=== PATIENT | female | born 1965 | race Caucasian/White ===

== ENCOUNTER → 2016-11-25 | Outpatient (CLI) | payer BC ==
[~2016-11-25] MED LIST: ATIVAN0.5 MG PO; ATIVAN1 MG PO; B-1100 MG PO; CARAFATE1 GM/10 ML PO; CELEXA40 MG PO; CIPRO500 MG PO; CITALOPRAM40 MG PO; CLONIDINE0.2 MG PO; FLAGYL500 MG PO; Flagyl500 M1 PO; HYDROCHLOROTHIA50 MG; IMODIUM A-D2 MG PO; KCL PO; KLONOPIN0.5 MG PO; KLOR-CON 1010 MEQ PO; KROGER NIC21 MG/24 H T; LIBRIUM25 MG PO; LISINOPRIL/HCTZ1 TA1 PO; LISINOPRIL20 MG PO; LOMOTIL 0.025 M1 TA1 PO; MULTIVITAMIN1 CTB PO; NATURE'S BLEND F1 MG PO; NORVASC10 MG; ONDANSETRON HYDR4 M1 PO; PEPCID20 MG PO; PHENERGAN25 M1 PO; PRILOSEC40 MG PO; PROTONIX40 MG PO; THERA TABS1 TAB PO; THERA1 TAB PO; TRICOR145 MG PO; VICODIN 5/500 505 MG PO; VISTARIL25 M1 PO; VISTARIL25 MG PO; VITAMIN B-11 TAB PO; XANAX0.5 MG PO; ZOFRAN ODT4 MG SL; Zofran4 MG PO
--- NOTE | ~2016-11-25 | ST ---
[place], [place] EXERCISE STRESS TEST REPORT NAME: [id number] UN[facility] #: [id number] ROOM: DOCTOR: AGAPITO SAWYER MD BIRTHDATE: [birth year] DOS: 11/25/2016 EKG portion of the test: The patient was unable to ambulate for Lexiscan Cardiolite as she is having continuous chest discomfort. Baseline cardiogram is sinus rhythm with poor R-wave progression in the anterior leads, 0.4 mg Lexiscan, duration of 10 seconds. No new EKG changes. No chest pain. Blood pressure and heart rate response was normal. Nuclear images will be reported separately. AGAPITO SAWYER MD CM:STRESS:EXERCISE STRESS TEST REPORT [id number] JESSIKA BARBERSE AGAPITO SAWYER MD
== END | disposition home or self-care (01) ==
LOC: CARD 03:32
DX: R07.2 Precordial pain (principal); R53.81 Other malaise

== ENCOUNTER 2017-02-02 10:58 | Inpatient (IN) | payer BC ==
[~2017-02-02] VITALS: Ht 154.9 cm; Wt 57.6 kg
--- NOTE | ~2017-02-02 | O ---
[place], [place] OPERATIVE NOTE NAME: ANNETTE SEPULVEDA UNIT #: [id number] ROOM: 510 DOCTOR: YOLETTE SAHU,MINGO BIRTHDATE: [birth year] DOS: INDICATIONS: The patient has presented with GI bleed, undergoing investigation. Consultation has been written. CT scan has been consistent with colitis. The patient has been taking Advil and epigastric distress. PROCEDURE: Today's procedure part of investigation is colonoscopy and panendoscopy. PREMEDICATION: Versed and Diprivan. SCOPE: Olympus forward-viewing gastroscope Q10 video. REPORT: After putting the patient in the left lateral position and after application of lubricant to the scope, the scope was introduced. Thereafter, under direct visualization, I advanced through the length of esophagus without difficulty. Moderate size hiatal hernia was noticed. Gastric pouch was entered. Gastritis was seen. Duodenal bulb, second and third part within normal limits. Antral biopsy obtained. The patient extubated, tolerated procedure well. IMPRESSION: Moderate sized hiatal hernia, gastritis of mild degree, status post biopsy. PLAN AND DISCUSSION: We are going to proceed with colonoscopy MINGO DE LA VEGA MD CM:OPRECORD:OPERATIVE NOTE [id number] MINGO DE LA VEGA MD 02/04/171930 interface
--- NOTE | ~2017-02-02 | CON ---
[place], [place] REPORT OF CONSULTATION NAME[facility]: [id number] UNIT #: [id number] ROOM: 510 DOCTOR: YOLETTE SAHUMINGO BIRTHDATE: [birth year] DOS: 02/04/2017 HISTORY OF PRESENT ILLNESS: A 51-year-old patient who presented with chief complaint of GI bleed. The patient has been taking some nonsteroidal anti-inflammatory for left lower quadrant pain. The patient has been experiencing melenic stool, is concerned about it. Comprehensive metabolic panel, electrolytes were reassessed. She was found initially to have hypokalemia of 2.8. Liver function test normal. C-reactive protein 2.19. INR was 1.1, PT 11.9. CBC, differential was reassessed. White blood cell was 12. Mild chronic changes of emphysema on chest x-ray. Lactic acid was 2.0. CT scan of the abdomen and pelvis was done, wall thickening of the colon on the right side was seen, fatty infiltration of liver, moderate amount of vascular calcification. Abdominal sonogram was done, unremarkable ultrasound of the abdomen. H and H 11 and 33, followup noticed. C. diff was negative. Blood cultures negative. Stool cultures negative. PAST MEDICAL HISTORY: Depression, GERD, gastritis, hiatal hernia, hypertension, anxiety. SOCIAL HISTORY: Alcohol dependency and also nicotine dependency. PAST SURGICAL HISTORY: Tonsillectomy, tubal ligation. FAMILY HISTORY: Noncontributory. ALLERGIES: SULFA. MEDICATIONS: List has been reviewed. REVIEW OF SYSTEMS: HEENT: Denies double vision, blurred vision. RESPIRATORY: Denies shortness of breath. CARDIOVASCULAR: Denies chest pain. DIGESTIVE SYSTEM: Black tarry stool. PHYSICAL EXAMINATION: VITAL SIGNS: Stable. HEENT: Head normocephalic, nontraumatic. Mouth and buccal mucosa benign. NECK: Supple. No thyromegaly. CHEST: Symmetric anatomy, equal expansion. No wheeze, no rhonchi. HEART: Normal sinus rhythm, no gallop, no murmur. ABDOMEN: Soft. No hepato-organomegaly. Bowel sounds present. No pulsatile mass. EXTREMITIES: No cyanosis, no pedal edema. NEUROLOGIC: Alert, oriented to time, place and person. IMPRESSION: Gastrointestinal bleed, ruling out upper versus colonic diverticulum and colitis all in the differential diagnosis. The patient with history of alcohol, nicotine, and nonsteroidal anti-inflammatory history. [place], [place] REPORT OF CONSULTATION NAME: ANNETTE SEPULVEDA [place] UNIT #: [id number] ROOM: [facility] DOCTOR: MINGO DE LA VEGA MD BIRTHDATE: [birth year] MINGO DE LA VEGA MD CM:CONSTR:REPORT OF CONSULTATION 1739 02/05/17 0223 interface
--- NOTE | ~2017-02-02 | CON ---
[place], [place] REPORT OF CONSULTATION [id number] UN[facility] #: [id number] ROOM: 510 DOCTOR: MINGO DE LA VEGA MD BIRTHDATE: [birth year] DOS: HISTORY OF PRESENT ILLNESS: A 51-year-old patient who presented with chief complaint of abdominal pain, cramps, diarrhea, underwent colonoscopic evaluation, was found to have colitis. Biopsies were reviewed, moderate acute and chronic colitis with foci of cryptitis was identified. Urine cultures were negative. CBC differential white blood cell was 6, H and H of 11 and 32, differential within normal limit. Basic metabolic panel: Potassium was 3.3. Basic metabolic panel reassessed, potassium has been corrected, sodium was 146, chloride 110. This could be secondary to saline product that she is receiving. PAST MEDICAL HISTORY: Gastritis, GERD, depression, hypertension, alcohol dependence, anxiety. PAST SURGICAL HISTORY: Tubal ligation, tonsillectomy. REVIEW OF SYSTEMS: No hematemesis, no hematochezia, no shortness of breath, no chest pain and GI system, continues with diarrhea, but milder. PHYSICAL EXAMINATION: HEENT: Benign. NECK: Supple, no thyromegaly. CHEST: Symmetric anatomy, equal expansion. HEART: Normal sinus rhythm, no gallop, no murmur. ABDOMEN: Soft. No hepato-organomegaly. Bowel sounds present. EXTREMITIES: No cyanosis. No pedal edema. NEUROLOGIC: Alert, oriented to time, place, person. IMPRESSION AND PLAN: Colitis. Allergies to SULFA. Therefore, it makes it very difficult to have mesalamine of choice except balsalazide, which is sulfate sparing and at least 1 month supply and we have talked to Dr. Hernandez regarding also doing a dose of prednisone 20 mg per day 1 week, then next week 10 mg and then next 3 tablets of 5 mg each every other day and we have extreme discussions with her regarding abstaining from alcohol, which is going to be very beneficial in her management and follow up as outpatient in [facility] Clinic. MINGO DE LA VEGA MD CM:CONSTR:REPORT OF CONSULTATION 1027 02/08/17 2317 interface
--- NOTE | ~2017-02-02 | O ---
[place], [place] OPERATIVE NOTE NAME: ANNETTE SEPULVEDA UNIT #: [id number] ROOM: 510 DOCTOR: YOLETTE SAHU,MINGO BIRTHDATE: [birth year] DOS: INDICATIONS: The patient has presented with chief complaint of large volume rectal bleed. PROCEDURE: Today's procedure part of investigation is colonoscopy. PREMEDICATION: Versed and Diprivan. SCOPE: Olympus forward-viewing gastroscope Q10 video. REPORT: After putting the patient in the left lateral position and after application of lubricant to rectal pouch and digital examination, scope was introduced. Thereafter, under direct visualization, I advanced through the length of colon without difficulty. Pancolitis with numerous ulcerated throughout the entire length of colon was identified. Photographed, biopsied. The patient was extubated, tolerated procedure well. IMPRESSION: Pancolitis, ruling out ulcerative colitis, ruling out previous insult of infectious colitis; however, studies are negative. PLAN AND DISCUSSION: We are going to start this patient on clear liquid, starting on metronidazole 500 mg IV q. 8 hours while she is an inpatient as well as balsalazide 750 mg 2 tablets 3 times a day. Follow up in office in 2 weeks and clinical reassessment. I thank you very much indeed for your kind referral. Sincerely, MINGO DE LA VEGA MD CM:OPRECORD:OPERATIVE NOTE [id number] MINGO DE LA VEGA MD 02/04/171936 interface
[2017-02-02 11:12] VITALS: BP 122/77
[2017-02-02] MEDS ORDERED: HYDROCODONE BIT1 T11 PO (11:14)
[2017-02-02] MEDS ORDERED: FLAGYL500 MG PO (11:14)
[2017-02-02] MEDS ORDERED: Ciprofloxacin500 MG PO (11:14)
[2017-02-02] MEDS ORDERED: DOK100 M1 PO (11:15)
[2017-02-02 12:00] VITALS: BP 129/72
[2017-02-02 12:11] LABS: HEMATOCRIT 37.4 % (37.0-47.0); HEMOGLOBIN 12.8 g/dl (12.0-16.0); MEAN CELL VOLUME 84.6 fl (81.0-99.0); MEAN CORPUSCULAR HGB CONC 34.2 g/dl (33.0-37.0); MEAN PLATELET VOLUME 8.9 fl (9.6-12.3); PLATELET COUNT AUTOMATED 700 10*3/uL (130-400); RED BLOOD COUNT 4.42 10*6/uL (4.10-5.10); RED CELL DISTRI WIDTH 14.5 % (0-14.5)
[2017-02-02 12:27] LABS: ALBUMIN 3.1 gm/dl (3.1-4.5); BUN 18 mg/dl (7-24); C-REACTIVE PROTEIN 2.19 MG/DL (0-0.3); CARBON DIOXIDE 25 mmol/L (21-32); CHLORIDE 103 mmol/L (98-107); EST GLOM FILT AFRICAN AMERICAN > 60 ml/min; GLUCOSE 103 mg/dL (65-99); INTERNATIONAL NORM RATIO 1.1 (2.0-3.5); MAGNESIUM 1.7 mg/dL (1.5-2.1); POTASSIUM 2.8 mmol/L (3.5-5.1); PROTHROMBIN TIME 11.9 SECONDS (9.0-12.4); SGOT/AST 19 IU/L (3-35); SGPT/ALT 16 U/L (12-78); SODIUM 141 mmol/L (136-145)
[2017-02-02 12:29] LABS: ALKALINE PHOSPHATASE 58 U/L (45-117); BILIRUBIN, TOTAL 0.3 mg/dl (0.2-1.0); CPK 38 U/L (26-192); TROPONIN I 0.017 ng/ml (<0.045)
[2017-02-02 12:37] LABS: ATYPICAL LYMPHS 1 % (0-0); EOSINOPHIL # 0.1 10*3/uL (0-0.4); EOSINOPHILS 1 % (1-4); LYMPHOCYTE # 2.5 10*3/uL (1.3-4.4); MONOCYTE # 0.5 10*3/uL (0.1-1.0); NEUTROPHIL # 8.9 10*3/uL (2.3-7.9); NEUTROPHILS 74 % (47-73); TOTAL CELLS COUNTED 100 #CELLS
[2017-02-02 12:38] LABS: PLATELET SUFFICIENCY HIGH (NORMAL)
[2017-02-02 14:10] LABS: BILIRUBIN NEGATIVE (NEGATIVE); BLOOD NEGATIVE (NEGATIVE); CLARITY SL CLOUDY (CLEAR); COLOR YELLOW (YELLOW); GLUCOSE NEGATIVE (NEGATIVE); KETONE NEGATIVE (NEGATIVE); LEUKO ESTERASE NEGATIVE (NEGATIVE); NITRITE NEGATIVE (NEGATIVE); PH 6.5 (5.0-9.0); PROTEIN 1+ (NEGATIVE); SPECIFIC GRAVITY <= 1.005 (1.005-1.030); UROBILINOGEN 0.2 E.U./dl (0.2-1.0)
[2017-02-02 14:28] LABS: EPITHELIAL CELLS 16-20; RBC 0-2 rbc/hpf (0-2); URINE REFLEX COMMENT YES (NO)
[2017-02-02 14:43] VITALS: BP 120/8; BP 120/80
[2017-02-02 15:51] VITALS: BP 132/90
[2017-02-02 16:00] VITALS: BP 144/76
[2017-02-02 20:00] VITALS: BP 130/67
[2017-02-03] VITALS: BP 129/72
[2017-02-03 06:43] LABS: BASO # 0.1 10*3/uL (0.0-0.1); BASO % 0.6 % (0.0-1.0); EOS # 0.3 10*3/uL (0.0-0.4); EOS % 2.8 % (1.0-4.0); HEMATOCRIT 33.2 % (37.0-47.0); IG # 0.1 10*3/uL (0.0-0.1); LYMPH # 2.1 10*3/uL (1.3-4.4); LYMPH % 20.8 % (27.0-41.0); MEAN CORPUSCULAR HGB 29.3 pg (27.0-31.0); MEAN CORPUSCULAR HGB CONC 33.1 g/dl (33.0-37.0); MEAN PLATELET VOLUME 9.5 fl (9.6-12.3); MONO # 0.9 10*3/uL (0.1-1.0); MONO % 8.6 % (3.0-9.0); NEUT # 6.8 10*3/uL (2.3-7.9); NEUT % 66.3 % (47.0-73.0); PLATELET COUNT AUTOMATED 541 10*3/uL (130-400); RED BLOOD COUNT 3.76 10*6/uL (4.10-5.10); RED CELL DISTRI WIDTH 14.7 % (0-14.5); WHITE BLOOD COUNT 10.2 10*3/uL (4.8-10.8)
[2017-02-03 06:51] LABS: MEAN CELL VOLUME 88.3 fl (81.0-99.0)
[2017-02-03 06:54] LABS: ALBUMIN 2.4 gm/dl (3.1-4.5); ALKALINE PHOSPHATASE 46 U/L (45-117); BILIRUBIN, TOTAL 0.3 mg/dl (0.2-1.0); BUN 14 mg/dl (7-24); CARBON DIOXIDE 25 mmol/L (21-32); CHLORIDE 110 mmol/L (98-107); EST GLOM FILT AFRICAN AMERICAN > 60 ml/min; FREE T4 1.41 ng/dl (0.76-1.46); GLUCOSE 92 mg/dL (65-99); MAGNESIUM 1.5 mg/dL (1.5-2.1); PHOSPHOROUS 2.4 mg/dL (2.5-4.9); POTASSIUM 3.1 mmol/L (3.5-5.1); SGOT/AST 15 IU/L (3-35); SGPT/ALT 12 U/L (12-78); SODIUM 144 mmol/L (136-145); TOTAL PROTEIN 5.6 gm/dL (6.4-8.2)
[2017-02-03 07:14] LABS: INTERNATIONAL NORM RATIO 1.1 (2.0-3.5); PROTHROMBIN TIME 11.7 SECONDS (9.0-12.4)
[2017-02-03 07:32] LABS: VITAMIN D, 25-HYDROXY 21.8 ng/mL (30-100)
[2017-02-03 07:33] LABS: FOLIC ACID 13.7 ng/mL (>5.38)
[2017-02-03 08:00] VITALS: BP 154/76
[2017-02-03 12:00] VITALS: BP 121/74
[2017-02-03 16:00] VITALS: BP 155/78
[2017-02-03 20:00] VITALS: BP 145/60
[2017-02-04] VITALS (8 sets, daily range): BP systolic 133–170; BP diastolic 70–90
[2017-02-04 07:34] LABS: BASO # 0.1 10*3/uL (0.0-0.1); BASO % 0.9 % (0.0-1.0); EOS # 0.3 10*3/uL (0.0-0.4); EOS % 3.9 % (1.0-4.0); HEMATOCRIT 32.2 % (37.0-47.0); HEMOGLOBIN 10.6 g/dl (12.0-16.0); IG # 0.1 10*3/uL (0.0-0.1); LYMPH # 2.1 10*3/uL (1.3-4.4); MEAN CELL VOLUME 86.3 fl (81.0-99.0); MEAN CORPUSCULAR HGB 28.4 pg (27.0-31.0); MEAN CORPUSCULAR HGB CONC 32.9 g/dl (33.0-37.0); MEAN PLATELET VOLUME 8.9 fl (9.6-12.3); MONO # 0.6 10*3/uL (0.1-1.0); MONO % 7.6 % (3.0-9.0); NEUT # 4.5 10*3/uL (2.3-7.9); NEUT % 58.6 % (47.0-73.0); PLATELET COUNT AUTOMATED 645 10*3/uL (130-400); RED BLOOD COUNT 3.73 10*6/uL (4.10-5.10); RED CELL DISTRI WIDTH 14.6 % (0-14.5); WHITE BLOOD COUNT 7.6 10*3/uL (4.8-10.8)
[2017-02-04 08:04] LABS: BUN 7 mg/dl (7-24); CARBON DIOXIDE 24 mmol/L (21-32); CHLORIDE 109 mmol/L (98-107); EST GLOM FILT AFRICAN AMERICAN > 60 ml/min; GLUCOSE 91 mg/dL (65-99); POTASSIUM 2.9 mmol/L (3.5-5.1); SODIUM 144 mmol/L (136-145)
[2017-02-05] VITALS (7 sets, daily range): BP systolic 129–180; BP diastolic 78–87
[2017-02-05 06:51] LABS: BASO # 0.1 10*3/uL (0.0-0.1); BASO % 1.1 % (0.0-1.0); EOS # 0.4 10*3/uL (0.0-0.4); EOS % 4.7 % (1.0-4.0); HEMATOCRIT 33.2 % (37.0-47.0); HEMOGLOBIN 10.8 g/dl (12.0-16.0); IG # 0.1 10*3/uL (0.0-0.1); LYMPH # 1.8 10*3/uL (1.3-4.4); LYMPH % 22.3 % (27.0-41.0); MEAN CELL VOLUME 87.1 fl (81.0-99.0); MEAN CORPUSCULAR HGB 28.3 pg (27.0-31.0); MEAN CORPUSCULAR HGB CONC 32.5 g/dl (33.0-37.0); MEAN PLATELET VOLUME 8.8 fl (9.6-12.3); MONO # 0.5 10*3/uL (0.1-1.0); MONO % 6.1 % (3.0-9.0); NEUT # 5.2 10*3/uL (2.3-7.9); NEUT % 65.2 % (47.0-73.0); PLATELET COUNT AUTOMATED 678 10*3/uL (130-400); RED BLOOD COUNT 3.81 10*6/uL (4.10-5.10); RED CELL DISTRI WIDTH 14.6 % (0-14.5); WHITE BLOOD COUNT 7.9 10*3/uL (4.8-10.8)
[2017-02-05 07:13] LABS: BUN 5 mg/dl (7-24); CARBON DIOXIDE 22 mmol/L (21-32); CHLORIDE 110 mmol/L (98-107); EST GLOM FILT AFRICAN AMERICAN > 60 ml/min; GLUCOSE 86 mg/dL (65-99); POTASSIUM 3.2 mmol/L (3.5-5.1); SODIUM 144 mmol/L (136-145)
[2017-02-05] MEDS ORDERED: FLONASE ALLERG9.9 ML NAS (09:52)
[2017-02-05 11:35] LABS: BILIRUBIN NEGATIVE (NEGATIVE); BLOOD NEGATIVE (NEGATIVE); CLARITY CLEAR (CLEAR); COLOR YELLOW (YELLOW); GLUCOSE NEGATIVE (NEGATIVE); KETONE NEGATIVE (NEGATIVE); LEUKO ESTERASE TRACE (NEGATIVE); NITRITE NEGATIVE (NEGATIVE); PH 5.5 (5.0-9.0); PROTEIN NEGATIVE (NEGATIVE); SPECIFIC GRAVITY 1.015 (1.005-1.030); UROBILINOGEN 0.2 E.U./dl (0.2-1.0)
[2017-02-05 11:54] LABS: BACTERIA TRACE; URINE REFLEX COMMENT YES (NO); WBC 0-2 wbc/hpf (0-5)
[2017-02-06] VITALS: BP 170/80
[2017-02-06 06:02] LABS: BASO # 0.1 10*3/uL (0.0-0.1); BASO % 0.9 % (0.0-1.0); EOS # 0.4 10*3/uL (0.0-0.4); EOS % 5.3 % (1.0-4.0); HEMATOCRIT 34.2 % (37.0-47.0); HEMOGLOBIN 11.5 g/dl (12.0-16.0); LYMPH # 1.8 10*3/uL (1.3-4.4); LYMPH % 23.9 % (27.0-41.0); MEAN CELL VOLUME 87.2 fl (81.0-99.0); MEAN CORPUSCULAR HGB 29.3 pg (27.0-31.0); MEAN CORPUSCULAR HGB CONC 33.6 g/dl (33.0-37.0); MEAN PLATELET VOLUME 8.5 fl (9.6-12.3); MONO # 0.5 10*3/uL (0.1-1.0); NEUT # 4.6 10*3/uL (2.3-7.9); NEUT % 62.4 % (47.0-73.0); PLATELET COUNT AUTOMATED 716 10*3/uL (130-400); RED BLOOD COUNT 3.92 10*6/uL (4.10-5.10); RED CELL DISTRI WIDTH 14.6 % (0-14.5); WHITE BLOOD COUNT 7.4 10*3/uL (4.8-10.8)
[2017-02-06 06:26] LABS: BUN 3 mg/dl (7-24); CARBON DIOXIDE 25 mmol/L (21-32); CHLORIDE 109 mmol/L (98-107); EST GLOM FILT AFRICAN AMERICAN > 60 ml/min; GLUCOSE 90 mg/dL (65-99); POTASSIUM 3.5 mmol/L (3.5-5.1); SODIUM 145 mmol/L (136-145)
[2017-02-06 08:00] VITALS: BP 178/86
[2017-02-06 12:00] VITALS: BP 134/88
[2017-02-06 16:00] VITALS: BP 153/80
[2017-02-06 20:00] VITALS: BP 147/79
[2017-02-07] VITALS: BP 155/78
[2017-02-07 07:21] LABS: BASO # 0.1 10*3/uL (0.0-0.1); BASO % 0.9 % (0.0-1.0); EOS # 0.3 10*3/uL (0.0-0.4); EOS % 5.1 % (1.0-4.0); HEMATOCRIT 32.7 % (37.0-47.0); HEMOGLOBIN 11.2 g/dl (12.0-16.0); LYMPH # 1.8 10*3/uL (1.3-4.4); LYMPH % 26.5 % (27.0-41.0); MEAN CELL VOLUME 86.3 fl (81.0-99.0); MEAN CORPUSCULAR HGB 29.6 pg (27.0-31.0); MEAN CORPUSCULAR HGB CONC 34.3 g/dl (33.0-37.0); MEAN PLATELET VOLUME 8.4 fl (9.6-12.3); MONO # 0.6 10*3/uL (0.1-1.0); MONO % 8.3 % (3.0-9.0); NEUT # 3.9 10*3/uL (2.3-7.9); NEUT % 58.9 % (47.0-73.0); PLATELET COUNT AUTOMATED 697 10*3/uL (130-400); RED BLOOD COUNT 3.79 10*6/uL (4.10-5.10); RED CELL DISTRI WIDTH 14.7 % (0-14.5); WHITE BLOOD COUNT 6.6 10*3/uL (4.8-10.8)
[2017-02-07 07:48] LABS: BUN 1 mg/dl (7-24); CARBON DIOXIDE 26 mmol/L (21-32); CHLORIDE 109 mmol/L (98-107); EST GLOM FILT AFRICAN AMERICAN > 60 ml/min; GLUCOSE 85 mg/dL (65-99); POTASSIUM 3.3 mmol/L (3.5-5.1); SODIUM 143 mmol/L (136-145)
[2017-02-07 08:00] VITALS: BP 155/84
[2017-02-07 12:00] VITALS: BP 152/83
[2017-02-07 16:00] VITALS: BP 120/60
[2017-02-07] MEDS ORDERED: BALSALAZIDE DI750 MG PO (16:01)
[2017-02-07] MEDS ORDERED: D-1000 185 MG-11 TAB PO (16:05)
[2017-02-07 20:00] VITALS: BP 107/63
[2017-02-08] VITALS: BP 149/83
[2017-02-08 06:52] LABS: BUN 3 mg/dl (7-24); CARBON DIOXIDE 25 mmol/L (21-32); CHLORIDE 110 mmol/L (98-107); EST GLOM FILT AFRICAN AMERICAN > 60 ml/min; GLUCOSE 105 mg/dL (65-99); POTASSIUM 3.6 mmol/L (3.5-5.1); SODIUM 146 mmol/L (136-145)
[2017-02-08 08:00] VITALS: BP 136/93
[2017-02-08] MEDS ORDERED: FLAGYL500 MG PO (10:25)
[2017-02-08] MEDS ORDERED: PREDNISONE5 MG PO (10:25)
[2017-02-08] MEDS ORDERED: ACIDOPHILUS1 EAC3 PO (10:54)
== END 2017-02-08 12:02 | disposition home or self-care (01) | DRG 871 ==
LOC: ED 10:58 → EDHOLD 14:55 → 5E 14:55
PROVIDERS: Emergency Medicine; Hospitalist; Internal Medicine
DX: A41.9 Sepsis, unspecified organism (principal); K85.90 Acute pancreatitis without necrosis or infection, unspecified; E43 Unspecified severe protein-calorie malnutrition; K92.2 Gastrointestinal hemorrhage, unspecified; K51.00 Ulcerative (chronic) pancolitis without complications; F10.230 Alcohol dependence with withdrawal, uncomplicated; N39.0 Urinary tract infection, site not specified; K52.9 Noninfective gastroenteritis and colitis, unspecified; E87.6 Hypokalemia; F17.200 Nicotine dependence, unspecified, uncomplicated; K21.9 Gastro-esophageal reflux disease without esophagitis; F41.9 Anxiety disorder, unspecified; F32.9 Major depressive disorder, single episode, unspecified; I10 Essential (primary) hypertension; R65.20 Severe sepsis without septic shock; K62.89 Other specified diseases of anus and rectum; D47.3 Essential (hemorrhagic) thrombocythemia; E55.9 Vitamin D deficiency, unspecified; B96.20 Unspecified Escherichia coli [E. coli] as the cause of diseases classified elsewhere; K29.70 Gastritis, unspecified, without bleeding; K44.9 Diaphragmatic hernia without obstruction or gangrene; Z98.51 Tubal ligation status; Z82.49 Family history of ischemic heart disease and other diseases of the circulatory system; Z79.2 Long term (current) use of antibiotics; Z79.1 Long term (current) use of non-steroidal anti-inflammatories (NSAID); Z79.899 Other long term (current) drug therapy; Z88.2 Allergy status to sulfonamides; Z68.24 Body mass index [BMI] 24.0-24.9, adult

== ENCOUNTER → 2017-04-02 | Outpatient (CLI) | payer BC ==
[~2017-04-02] MED LIST changes: +ACIDOPHILUS1 EAC3 PO; +BALSALAZIDE DI750 MG PO; +Ciprofloxacin500 MG PO; +D-1000 185 MG-11 TAB PO; +DOK100 M1 PO; +FLONASE ALLERG9.9 ML NAS; +HYDROCODONE BIT1 T11 PO; +PREDNISONE5 MG PO
[2017-04-02 10:50] LABS: BASO # 0.1 10*3/uL (0.0-0.1); BASO % 1.5 % (0.0-1.0); EOS # 0.3 10*3/uL (0.0-0.4); EOS % 5.1 % (1.0-4.0); HEMATOCRIT 37.1 % (37.0-47.0); HEMOGLOBIN 12.4 g/dl (12.0-16.0); LYMPH # 2.1 10*3/uL (1.3-4.4); LYMPH % 31.9 % (27.0-41.0); MEAN CELL VOLUME 88.1 fl (81.0-99.0); MEAN CORPUSCULAR HGB 29.5 pg (27.0-31.0); MEAN CORPUSCULAR HGB CONC 33.4 g/dl (33.0-37.0); MEAN PLATELET VOLUME 9.6 fl (9.6-12.3); MONO # 0.4 10*3/uL (0.1-1.0); MONO % 5.9 % (3.0-9.0); NEUT # 3.6 10*3/uL (2.3-7.9); NEUT % 55.3 % (47.0-73.0); PLATELET COUNT AUTOMATED 366 10*3/uL (130-400); RED BLOOD COUNT 4.21 10*6/uL (4.10-5.10); WHITE BLOOD COUNT 6.5 10*3/uL (4.8-10.8)
[2017-04-02 11:17] LABS: BUN 14 mg/dl (7-24); CARBON DIOXIDE 26 mmol/L (21-32); CHLORIDE 104 mmol/L (98-107); HDL CHOLESTEROL 63 mg/dl (40-60); POTASSIUM 4.2 mmol/L (3.5-5.1); SODIUM 137 mmol/L (136-145)
[2017-04-02 11:25] LABS: THYROID STIM HORMONE (HS) 0.718 uIU/ml (0.358-4.75)
[2017-04-02 11:27] LABS: ALBUMIN 3.6 gm/dl (3.1-4.5); ALKALINE PHOSPHATASE 80 U/L (45-117); BILIRUBIN, TOTAL 0.2 mg/dl (0.2-1.0); CHOLESTEROL 226 mg/dL (<200); EST GLOM FILT AFRICAN AMERICAN > 60 ml/min; GLUCOSE 84 mg/dL (65-99); LDL CHOLESTEROL 141 mg/dL (9-159); SGOT/AST 18 IU/L (3-35); SGPT/ALT 17 U/L (12-78); TOTAL PROTEIN 7.2 gm/dL (6.4-8.2); TRIGLYCERIDES 112 mg/dl (<150); VLDL CHOLESTEROL 22 mg/dL (6-40)
== END | disposition home or self-care (01) ==
LOC: LAB 09:52
PROVIDERS: Nurse Practitioner Family
DX: I10 Essential (primary) hypertension (principal); F41.9 Anxiety disorder, unspecified; F32.9 Major depressive disorder, single episode, unspecified

== ENCOUNTER 2017-10-26 15:02 | Emergency (ER) | payer BC ==
[~2017-10-26] VITALS: Ht 154.9 cm; Wt 63.5 kg
[2017-10-26 15:09] VITALS: BP 125/80
[2017-10-26 15:53] LABS: BASO # 0.1 10*3/uL (0.0-0.1); BASO % 0.7 % (0.0-1.0); EOS # 0.4 10*3/uL (0.0-0.4); EOS % 2.9 % (1.0-4.0); HEMATOCRIT 40.3 % (37.0-47.0); HEMOGLOBIN 12.7 g/dl (12.0-16.0); LYMPH # 1.8 10*3/uL (1.3-4.4); LYMPH % 14.9 % (27.0-41.0); MEAN CELL VOLUME 86.9 fl (81.0-99.0); MEAN CORPUSCULAR HGB 27.4 pg (27.0-31.0); MEAN CORPUSCULAR HGB CONC 31.5 g/dl (33.0-37.0); MEAN PLATELET VOLUME 8.9 fl (9.6-12.3); MONO # 1.2 10*3/uL (0.1-1.0); MONO % 10.1 % (3.0-9.0); NEUT # 8.6 10*3/uL (2.3-7.9); NEUT % 71.2 % (47.0-73.0); PLATELET COUNT AUTOMATED 463 10*3/uL (130-400); RED BLOOD COUNT 4.64 10*6/uL (4.10-5.10); RED CELL DISTRI WIDTH 13.9 % (0-14.5); WHITE BLOOD COUNT 12.1 10*3/uL (4.8-10.8)
[2017-10-26 15:58] LABS: URINE AMPHETAMINES < 1000 (1000ng/ml); URINE BARBITURATES < 200 (200ng/ml); URINE BENZODIAZEPINES < 200 (200ng/ml); URINE CANNABINOIDS (THC) < 50 (50ng/ml); URINE COCAINE < 300 (300ng/ml); URINE METHADONE < 300 (300ng/ml); URINE OPIATES < 300 (300ng/ml)
[2017-10-26 16:01] LABS: BILIRUBIN 1+ (NEGATIVE); BLOOD NEGATIVE (NEGATIVE); CLARITY SL CLOUDY (CLEAR); COLOR YELLOW (YELLOW); GLUCOSE NEGATIVE (NEGATIVE); KETONE 2+ (NEGATIVE); LEUKO ESTERASE NEGATIVE (NEGATIVE); NITRITE NEGATIVE (NEGATIVE); SPECIFIC GRAVITY >= 1.030 (1.005-1.030); UROBILINOGEN 0.2 E.U./dl (0.2-1.0)
[2017-10-26 16:03] LABS: URINE PHENCYCLIDINE < 25 (25ng/ml)
[2017-10-26 16:10] LABS: BACTERIA 2+; RBC 0-2 rbc/hpf (0-2)
[2017-10-26 16:12] LABS: ACETAMINOPHEN (TYLENOL) 3.4 ug/ml (10-30); ALKALINE PHOSPHATASE 92 U/L (45-117); BUN 7 mg/dl (7-24); CHLORIDE 107 mmol/L (98-107); CREATININE 0.72 mg/dL (0.55-1.02); ETHYL ALCOHOL < 3.0 mg/dl (<3); POTASSIUM 3.9 mmol/L (3.5-5.1); SGOT/AST 13 IU/L (3-35); SGPT/ALT 12 U/L (12-78); SODIUM 140 mmol/L (136-145); TOTAL PROTEIN 6.8 gm/dL (6.4-8.2)
[2017-10-26] MEDS ORDERED: NAPROSYN500 MG PO (17:30)
== END 2017-10-26 17:26 | disposition home or self-care (01) ==
LOC: ED 15:02
PROVIDERS: Nurse Practitioner Family
DX: R19.7 Diarrhea, unspecified (principal); R10.30 Lower abdominal pain, unspecified; R50.9 Fever, unspecified; F17.200 Nicotine dependence, unspecified, uncomplicated; Z88.2 Allergy status to sulfonamides; Z79.899 Other long term (current) drug therapy

== ENCOUNTER 2018-01-21 16:16 | Emergency (ER) | payer BC ==
[~2018-01-21] VITALS: Ht 152.4 cm; Wt 49.9 kg
[~2018-01-21 16:16] MED LIST changes: +NAPROSYN500 MG PO
[2018-01-21 17:51] LABS: BASO # 0.1 10*3/uL (0.0-0.1); BASO % 0.6 % (0.0-1.0); EOS # 0.1 10*3/uL (0.0-0.4); HEMATOCRIT 30.9 % (37.0-47.0); HEMOGLOBIN 9.7 g/dl (12.0-16.0); LYMPH # 2.2 10*3/uL (1.3-4.4); LYMPH % 24.8 % (27.0-41.0); MEAN CELL VOLUME 80.5 fl (81.0-99.0); MEAN CORPUSCULAR HGB 25.3 pg (27.0-31.0); MEAN CORPUSCULAR HGB CONC 31.4 g/dl (33.0-37.0); MEAN PLATELET VOLUME 8.7 fl (9.6-12.3); MONO # 0.8 10*3/uL (0.1-1.0); MONO % 9.1 % (3.0-9.0); NEUT # 5.8 10*3/uL (2.3-7.9); NEUT % 64.2 % (47.0-73.0); PLATELET COUNT AUTOMATED 630 10*3/uL (130-400); RED BLOOD COUNT 3.84 10*6/uL (4.10-5.10); RED CELL DISTRI WIDTH 15.1 % (0-14.5)
[2018-01-21 18:06] LABS: ALBUMIN 2.8 gm/dl (3.1-4.5); ALKALINE PHOSPHATASE 83 U/L (45-117); BUN 9 mg/dl (7-24); CHLORIDE 105 mmol/L (98-107); CREATININE 0.66 mg/dL (0.55-1.02); LIPASE 70 U/L (73-393); POTASSIUM 3.1 mmol/L (3.5-5.1); SGOT/AST 12 IU/L (3-35); SGPT/ALT 11 U/L (12-78); SODIUM 144 mmol/L (136-145); TOTAL PROTEIN 6.8 gm/dL (6.4-8.2)
[2018-01-21 21:04] VITALS: BP 149/46
[2018-01-21] MEDS ORDERED: COMPAZINE R (21:28)
[2018-01-21] MEDS ORDERED: CIPRO500 MG PO (21:28)
[2018-01-21] MEDS ORDERED: FLAGYL500 MG PO (21:28)
[2018-01-21] MEDS ORDERED: ZOFRAN ODT4 MG SL (21:28)
== END 2018-01-21 21:40 | disposition home or self-care (01) ==
LOC: ED 16:16
PROVIDERS: Nurse Practitioner Family
DX: K52.9 Noninfective gastroenteritis and colitis, unspecified (principal); I10 Essential (primary) hypertension; K21.9 Gastro-esophageal reflux disease without esophagitis; F17.200 Nicotine dependence, unspecified, uncomplicated; Z88.2 Allergy status to sulfonamides; Z79.899 Other long term (current) drug therapy

== ENCOUNTER → 2018-05-04 | Outpatient (CLI) | payer BC ==
[~2018-05-04] MED LIST changes: +COMPAZINE R
[2018-05-04 15:14] LABS: BASO # 0.1 10*3/uL (0.0-0.1); EOS # 1.1 10*3/uL (0.0-0.4); EOS % 9.3 % (1.0-4.0); HEMATOCRIT 36.5 % (37.0-47.0); HEMOGLOBIN 11.6 g/dl (12.0-16.0); LYMPH # 2.1 10*3/uL (1.3-4.4); LYMPH % 18.5 % (27.0-41.0); MEAN CELL VOLUME 83.1 fl (81.0-99.0); MEAN CORPUSCULAR HGB 26.4 pg (27.0-31.0); MEAN CORPUSCULAR HGB CONC 31.8 g/dl (33.0-37.0); MEAN PLATELET VOLUME 8.5 fl (9.6-12.3); MONO # 0.6 10*3/uL (0.1-1.0); MONO % 5.6 % (3.0-9.0); NEUT # 7.4 10*3/uL (2.3-7.9); NEUT % 65.2 % (47.0-73.0); PLATELET COUNT AUTOMATED 536 10*3/uL (130-400); RED BLOOD COUNT 4.39 10*6/uL (4.10-5.10); WHITE BLOOD COUNT 11.4 10*3/uL (4.8-10.8)
[2018-05-04 15:19] LABS: BUN 12 mg/dl (7-24); CHLORIDE 107 mmol/L (98-107); CREATININE 0.76 mg/dL (0.55-1.02); POTASSIUM 4.4 mmol/L (3.5-5.1); SODIUM 140 mmol/L (136-145)
== END | disposition home or self-care (01) ==
LOC: LAB 14:35
PROVIDERS: Internal Medicine Gastroenterology
DX: K51.90 Ulcerative colitis, unspecified, without complications (principal)

== ENCOUNTER → 2018-09-14 | Outpatient (CLI) | payer BC ==
[~2018-09-14] MED LIST changes: +BUSPIRONE HCL10 MG PO; +HYOSCYAMINE0.125 M1 PO; +METHYLPRED-DP4 MG PO; +PERCOCET 10-321 EACH PO; +TRAMADOL HCL50 MG PO
[2018-09-14 16:09] LABS: ALBUMIN 3.1 gm/dl (3.1-4.5); ALKALINE PHOSPHATASE 96 U/L (45-117); BUN 9 mg/dl (7-24); CHLORIDE 107 mmol/L (98-107); CREATININE 0.77 mg/dL (0.55-1.02); POTASSIUM 3.6 mmol/L (3.5-5.1); SGOT/AST 13 IU/L (3-35); SGPT/ALT 10 U/L (12-78); SODIUM 142 mmol/L (136-145); TOTAL PROTEIN 6.9 gm/dL (6.4-8.2)
== END | disposition home or self-care (01) ==
LOC: LAB 15:24
PROVIDERS: Internal Medicine Gastroenterology
DX: R19.7 Diarrhea, unspecified (principal)

== ENCOUNTER → 2018-09-17 | Outpatient (CLI) | payer BC | END | disposition home or self-care (01) | LOC: LAB 16:27 | DX: R19.7 Diarrhea, unspecified (principal) ==

== ENCOUNTER 2019-10-02 14:53 | Emergency (ER) | payer BC ==
[~2019-10-02] VITALS: Ht 154.9 cm; Wt 59.0 kg
[2019-10-02 15:06] VITALS: BP 129/72
[2019-10-02 16:07] LABS: BASO # 0.1 10*3/uL (0.0-0.1); BASO % 0.8 % (0.0-1.0); EOS # 0.5 10*3/uL (0.0-0.4); EOS % 4.5 % (1.0-4.0); HEMATOCRIT 41.8 % (37.0-47.0); HEMOGLOBIN 13.2 g/dl (12.0-16.0); LYMPH # 2.4 10*3/uL (1.3-4.4); LYMPH % 23.1 % (27.0-41.0); MEAN CELL VOLUME 86.4 fl (81.0-99.0); MEAN CORPUSCULAR HGB 27.3 pg (27.0-31.0); MEAN CORPUSCULAR HGB CONC 31.6 g/dl (33.0-37.0); MEAN PLATELET VOLUME 9.1 fl (9.6-12.3); MONO # 1.1 10*3/uL (0.1-1.0); MONO % 10.7 % (3.0-9.0); NEUT # 6.2 10*3/uL (2.3-7.9); NEUT % 60.5 % (47.0-73.0); PLATELET COUNT AUTOMATED 533 10*3/uL (130-400); RED BLOOD COUNT 4.84 10*6/uL (4.10-5.10); RED CELL DISTRI WIDTH 14.6 % (0-14.5); WHITE BLOOD COUNT 10.3 10*3/uL (4.8-10.8)
[2019-10-02 16:23] LABS: ALBUMIN 2.7 gm/dl (3.1-4.5); ALKALINE PHOSPHATASE 122 U/L (45-117); BUN 11 mg/dl (7-24); CHLORIDE 104 mmol/L (98-107); CREATININE 0.79 mg/dL (0.55-1.02); LIPASE 121 U/L (73-393); POTASSIUM 3.2 mmol/L (3.5-5.1); SGOT/AST 17 IU/L (3-35); SGPT/ALT 14 U/L (12-78); SODIUM 141 mmol/L (136-145)
[2019-10-02 17:20] LABS: CLARITY SL CLOUDY (CLEAR); COLOR YELLOW (YELLOW)
[2019-10-02 17:22] LABS: BILIRUBIN NEGATIVE (NEGATIVE); BLOOD NEGATIVE (NEGATIVE); GLUCOSE NEGATIVE (NEGATIVE); KETONE NEGATIVE (NEGATIVE); LEUKO ESTERASE NEGATIVE (NEGATIVE); NITRITE NEGATIVE (NEGATIVE); UROBILINOGEN 0.2 E.U./dl (0.2-1.0)
[2019-10-02 17:27] LABS: BACTERIA TRACE; EPITHELIAL CELLS 21-30; MUCOUS 3+; WBC 16-20 wbc/hpf (0-5)
[2019-10-02] MEDS ORDERED: FLAGYL500 MG PO (17:58)
[2019-10-02] MEDS ORDERED: CIPRO250 MG PO (17:58)
== END 2019-10-02 18:05 | disposition home or self-care (01) ==
LOC: ED 14:53
PROVIDERS: Nurse Practitioner Family
DX: K52.9 Noninfective gastroenteritis and colitis, unspecified (principal); R30.0 Dysuria; I10 Essential (primary) hypertension; K21.9 Gastro-esophageal reflux disease without esophagitis; F17.200 Nicotine dependence, unspecified, uncomplicated; Z88.2 Allergy status to sulfonamides; Z79.899 Other long term (current) drug therapy

== ENCOUNTER → 2019-12-29 | Outpatient (CLI) | payer BC ==
[~2019-12-29] MED LIST changes: +CIPRO250 MG PO
== END | disposition home or self-care (01) ==
LOC: LAB 12:50
DX: K51.90 Ulcerative colitis, unspecified, without complications (principal)

== ENCOUNTER → 2020-04-07 | Outpatient (CLI) | payer BC | END | disposition home or self-care (01) | LOC: LAB 14:09 | DX: K51.90 Ulcerative colitis, unspecified, without complications (principal) ==

== ENCOUNTER 2020-10-16 16:23 | Emergency (ER) | payer BC ==
[~2020-10-16] VITALS: Ht 154.9 cm; Wt 44.5 kg
[2020-10-16 16:34] VITALS: BP 142/92
== END 2020-10-16 19:44 | disposition home or self-care (01) ==
LOC: ED 16:23
DX: K12.1 Other forms of stomatitis (principal); F32.9 Major depressive disorder, single episode, unspecified; K21.9 Gastro-esophageal reflux disease without esophagitis; I10 Essential (primary) hypertension; F41.9 Anxiety disorder, unspecified; Z88.2 Allergy status to sulfonamides; Z79.2 Long term (current) use of antibiotics; Z79.899 Other long term (current) drug therapy; Z98.51 Tubal ligation status; Z90.89 Acquired absence of other organs; Z87.891 Personal history of nicotine dependence

== ENCOUNTER → 2020-10-19 | Outpatient (CLI) | payer BC ==
[2020-10-19 14:45] LABS: HEMATOCRIT 33.5 % (37.0-47.0); MEAN CELL VOLUME 77.9 fl (81.0-99.0); MEAN CORPUSCULAR HGB 23.7 pg (27.0-31.0); MEAN CORPUSCULAR HGB CONC 30.4 g/dl (33.0-37.0); MEAN PLATELET VOLUME 7.8 fl (9.6-12.3); PLATELET COUNT AUTOMATED 992 10*3/uL (130-400); RED CELL DISTRI WIDTH 17.4 % (0-14.5); WHITE BLOOD COUNT 15.1 10*3/uL (4.8-10.8)
[2020-10-19 15:02] LABS: MICROCYTOSIS SLIGHT; PLATELET SUFFICIENCY HIGH (NORMAL); TOTAL CELLS COUNTED 100 #CELLS
[2020-10-19 15:19] LABS: ALBUMIN 2.4 gm/dl (3.1-4.5); ALKALINE PHOSPHATASE 170 U/L (45-117); BUN 24 mg/dl (7-24); CHLORIDE 105 mmol/L (98-107); CREATININE 0.61 mg/dL (0.55-1.02); POTASSIUM 4.1 mmol/L (3.5-5.1); PREALBUMIN 15 mg/dl (20-40); SGOT/AST 22 IU/L (3-35); SGPT/ALT 19 U/L (12-78); SODIUM 140 mmol/L (136-145); TOTAL PROTEIN 6.5 gm/dL (6.4-8.2)
== END | disposition home or self-care (01) ==
LOC: LAB 14:26
PROVIDERS: ATTEND Internal Medicine Gastroenterology
DX: K50.118 Crohn's disease of large intestine with other complication (principal)

== ENCOUNTER → 2020-10-21 | Outpatient (CLI) | payer BC | END | disposition home or self-care (01) | LOC: LAB 16:27 | PROVIDERS: ATTEND Internal Medicine Gastroenterology | DX: K50.118 Crohn's disease of large intestine with other complication (principal) ==

== ENCOUNTER → 2020-11-06 | Outpatient (CLI) | payer BC ==
[2020-11-06 15:49] LABS: HEMATOCRIT 28.8 % (37.0-47.0); MEAN CELL VOLUME 84.5 fl (81.0-99.0); MEAN CORPUSCULAR HGB 24.9 pg (27.0-31.0); MEAN CORPUSCULAR HGB CONC 29.5 g/dl (33.0-37.0); MEAN PLATELET VOLUME 8.4 fl (9.6-12.3); PLATELET COUNT AUTOMATED 475 10*3/uL (130-400); RED BLOOD COUNT 3.41 10*6/uL (4.10-5.10); WHITE BLOOD COUNT 13.8 10*3/uL (4.8-10.8)
[2020-11-06 16:07] LABS: ALBUMIN 2.5 gm/dl (3.1-4.5); ALKALINE PHOSPHATASE 90 U/L (45-117); BUN 21 mg/dl (7-24); CHLORIDE 109 mmol/L (98-107); CREATININE 0.48 mg/dL (0.55-1.02); POTASSIUM 4.3 mmol/L (3.5-5.1); SGOT/AST 21 IU/L (3-35); SGPT/ALT 101 U/L (12-78); SODIUM 141 mmol/L (136-145)
[2020-11-06 16:20] LABS: OVALOCYTES FEW; PLATELET SUFFICIENCY HIGH (NORMAL); TOTAL CELLS COUNTED 100 #CELLS
[2020-11-06 16:21] LABS: MICROCYTOSIS SLIGHT
== END | disposition home or self-care (01) ==
LOC: LAB 15:07
PROVIDERS: ATTEND Hospitalist
DX: K51.90 Ulcerative colitis, unspecified, without complications (principal)

== ENCOUNTER → 2020-11-26 | Outpatient (CLI) | payer BC ==
[2020-11-26 15:07] LABS: BASO % 0.2 % (0.0-1.0); EOS # 0.1 10*3/uL (0.0-0.4); EOS % 0.3 % (1.0-4.0); HEMATOCRIT 32.4 % (37.0-47.0); LYMPH # 1.6 10*3/uL (1.3-4.4); LYMPH % 9.8 % (27.0-41.0); MEAN CELL VOLUME 85.7 fl (81.0-99.0); MEAN CORPUSCULAR HGB 25.7 pg (27.0-31.0); MEAN CORPUSCULAR HGB CONC 29.9 g/dl (33.0-37.0); MONO # 0.9 10*3/uL (0.1-1.0); MONO % 5.6 % (3.0-9.0); NEUT # 13.3 10*3/uL (2.3-7.9); NEUT % 82.8 % (47.0-73.0); PLATELET COUNT AUTOMATED 716 10*3/uL (130-400); RED BLOOD COUNT 3.78 10*6/uL (4.10-5.10); RED CELL DISTRI WIDTH 21.6 % (0-14.5)
[2020-11-26 15:21] LABS: BUN 18 mg/dl (7-24); CHLORIDE 106 mmol/L (98-107); CREATININE 0.59 mg/dL (0.55-1.02); POTASSIUM 4.2 mmol/L (3.5-5.1); SODIUM 139 mmol/L (136-145)
== END | disposition home or self-care (01) ==
LOC: LAB 14:13
PROVIDERS: ATTEND Colon & Rectal Surgery
DX: I51.7 Cardiomegaly (principal); K51.919 Ulcerative colitis, unspecified with unspecified complications

== ENCOUNTER → 2021-06-24 | Outpatient (CLI) | payer BC | END | disposition home or self-care (01) | LOC: RAD 14:46 | PROVIDERS: ATTEND Nurse Practitioner Family | DX: U07.1 COVID-19 (principal); J12.82 Pneumonia due to coronavirus disease 2019 ==

== ENCOUNTER → 2022-01-10 | Outpatient (CLI) | payer BC ==
[~2022-01-10] MED LIST changes: +BELBUCA300 MCG BC; +MIRTAZAPINE30 M2 PO; +NEURONTIN300 MG PO; +VISTARIL50 MG PO; +ZOFRAN4 MG PO
== END | disposition home or self-care (01) ==
LOC: RAD 10:10
PROVIDERS: ATTEND Nurse Practitioner Family
DX: J43.9 Emphysema, unspecified (principal); R05.9 Cough, unspecified; R06.2 Wheezing; F17.210 Nicotine dependence, cigarettes, uncomplicated

== ENCOUNTER → 2022-01-17 | Outpatient (CLI) | payer BC | END | disposition home or self-care (01) | LOC: CT 12:42 | PROVIDERS: ATTEND Nurse Practitioner Family | DX: J98.11 Atelectasis (principal); J43.9 Emphysema, unspecified; I25.10 Atherosclerotic heart disease of native coronary artery without angina pectoris; E04.1 Nontoxic single thyroid nodule; I34.8 Other nonrheumatic mitral valve disorders ==

== ENCOUNTER → 2022-01-29 | Outpatient (CLI) | payer BC | END | disposition home or self-care (01) | LOC: US 11:00 | PROVIDERS: ATTEND Nurse Practitioner Family | DX: M71.22 Synovial cyst of popliteal space [Baker], left knee (principal) ==

== ENCOUNTER → 2022-02-14 | Outpatient (CLI) | payer BC ==
[2022-02-14 14:58] LABS: BASO # 0.1 10*3/uL (0.0-0.1); BASO % 0.8 % (0.0-1.0); EOS # 0.2 10*3/uL (0.0-0.4); EOS % 3.4 % (1.0-4.0); HEMATOCRIT 39.4 % (37.0-47.0); LYMPH # 1.6 10*3/uL (1.3-4.4); LYMPH % 22.2 % (27.0-41.0); MEAN CELL VOLUME 91.2 fl (81.0-99.0); MEAN CORPUSCULAR HGB 29.9 pg (27.0-31.0); MEAN CORPUSCULAR HGB CONC 32.7 g/dl (33.0-37.0); MEAN PLATELET VOLUME 9.7 fl (9.6-12.3); MONO # 0.5 10*3/uL (0.1-1.0); NEUT # 4.8 10*3/uL (2.3-7.9); NEUT % 66.3 % (47.0-73.0); PLATELET COUNT AUTOMATED 309 10*3/uL (130-400); RED BLOOD COUNT 4.32 10*6/uL (4.10-5.10); RED CELL DISTRI WIDTH 18.6 % (0-14.5); WHITE BLOOD COUNT 7.2 10*3/uL (4.8-10.8)
== END | disposition home or self-care (01) ==
LOC: LAB 14:39
PROVIDERS: ATTEND Nurse Practitioner Family
DX: E61.1 Iron deficiency (principal)

== ENCOUNTER → 2025-01-20 | Outpatient (CLI) | payer BC ==
[2025-01-20 10:55] LABS: BASO # 0.1 10*3/uL (0.0-0.1); BASO % 1.2 % (0.0-1.0); EOS # 0.3 10*3/uL (0.0-0.4); EOS % 3.7 % (1.0-4.0); HEMATOCRIT 43.6 % (37.0-47.0); MEAN CELL VOLUME 96.7 fl (81.0-99.0); MEAN CORPUSCULAR HGB 32.6 pg (27.0-31.0); MEAN CORPUSCULAR HGB CONC 33.7 g/dl (33.0-37.0); MEAN PLATELET VOLUME 8.5 fl (9.6-12.3); MONO # 0.6 10*3/uL (0.1-1.0); NEUT # 4.8 10*3/uL (2.3-7.9); NEUT % 64.9 % (47.0-73.0); PLATELET COUNT AUTOMATED 312 10*3/uL (130-400); RED BLOOD COUNT 4.51 10*6/uL (4.10-5.10); RED CELL DISTRI WIDTH 12.6 % (0-14.5); WHITE BLOOD COUNT 7.5 10*3/uL (4.8-10.8)
[2025-01-20 11:13] LABS: ALKALINE PHOSPHATASE 96 U/L (46-116); BUN 9 mg/dl (9-23); CHLORIDE 98 mmol/L (98-107); CHOLESTEROL 206 mg/dL (<200); LDL CHOLESTEROL 72 mg/dL (9-159); POTASSIUM 4.6 mmol/L (3.4-5.1); SGPT/ALT 12 U/L (5-49); TOTAL PROTEIN 6.8 gm/dL (6.0-8.0); TRIGLYCERIDES 63 mg/dl (<150)
== END | disposition home or self-care (01) ==
LOC: LAB 10:20
PROVIDERS: ATTEND Nurse Practitioner Primary Care
DX: K50.119 Crohn's disease of large intestine with unspecified complications (principal); D64.9 Anemia, unspecified; E03.9 Hypothyroidism, unspecified

== ENCOUNTER 2025-01-24 15:39 | Inpatient (IN) | payer BC ==
[~2025-01-24] VITALS: Ht 154.9 cm; Wt 58.6 kg
[2025-01-24 15:44] VITALS: BP 196/107
[2025-01-24 16:18] LABS: BILIRUBIN Negative (Negative); BLOOD Negative (Negative); CLARITY Clear (Clear); COLOR Yellow (Yellow); GLUCOSE Negative (Negative); KETONE Negative (Negative); LEUKO ESTERASE 2+ (Negative); NITRITE Negative (Negative); SPECIFIC GRAVITY <= 1.005 (1.001-1.030); UROBILINOGEN 0.2 E.U./dl (0.0-1.0)
[2025-01-24 16:19] LABS: BASO # 0.1 10*3/uL (0.0-0.1); BASO % 1.1 % (0.0-1.0); EOS # 0.3 10*3/uL (0.0-0.4); EOS % 3.2 % (1.0-4.0); HEMATOCRIT 37.7 % (37.0-47.0); MEAN CELL VOLUME 94.3 fl (81.0-99.0); MEAN CORPUSCULAR HGB 32.5 pg (27.0-31.0); MEAN CORPUSCULAR HGB CONC 34.5 g/dl (33.0-37.0); MEAN PLATELET VOLUME 8.2 fl (9.6-12.3); MONO % 12.4 % (3.0-9.0); NEUT % 60.1 % (47.0-73.0); PLATELET COUNT AUTOMATED 307 10*3/uL (130-400); RED CELL DISTRI WIDTH 12.2 % (0-14.5); WHITE BLOOD COUNT 8.3 10*3/uL (4.8-10.8)
[2025-01-24 16:25] LABS: URINE AMPHETAMINES Negative (1000ng/ml); URINE BARBITURATES Negative (200ng/ml); URINE BENZODIAZEPINES Negative (200ng/ml); URINE CANNABINOIDS (THC) Negative (50ng/ml); URINE COCAINE Negative (300ng/ml); URINE METHADONE Negative (300ng/ml); URINE OPIATES Negative (300ng/ml); URINE PHENCYCLIDINE Negative (25ng/ml)
[2025-01-24 16:40] LABS: BACTERIA 1+; RBC 0-2 rbc/hpf (0-2); WBC 21-30 wbc/hpf (0-5)
[2025-01-24 16:47] LABS: ALKALINE PHOSPHATASE 83 U/L (46-116); BUN 9 mg/dl (9-23); CHLORIDE 92 mmol/L (98-107); POTASSIUM 4.2 mmol/L (3.4-5.1); SGPT/ALT 15 U/L (5-49); TOTAL PROTEIN 6.4 gm/dL (6.0-8.0)
[2025-01-24] MEDS ORDERED: Labetalol Hydrochloride 20 MG/4 ML SYR IV ONE (16:55)
[2025-01-24] MEDS ORDERED: MAGNESIUM SULFATE 100 ML IV ONE (16:55)
[2025-01-24 16:58] LABS: ACT PARTIAL THROMBO TIME 29.3 SECONDS (20.0-32.1)
[2025-01-24 17:11] VITALS: BP 193/96
[2025-01-24 17:50] VITALS: BP 168/82
[2025-01-24 20:01] VITALS: BP 162/90
[2025-01-24 20:09] VITALS: BP 156/92; BP 159/92
[2025-01-24] MEDS ORDERED: BISACODYL 10 MG SUPP R PRN (20:15)
[2025-01-24] MEDS ORDERED: Magnesium Hydroxide 30 ML UDC PO PRN (20:15)
[2025-01-24] MEDS ORDERED: BISACODYL 5 MG TAB PO PRN (20:15)
[2025-01-24] MEDS ORDERED: Ondansetron Hydrochloride 4 MG/2 ML VIAL IV PRN (20:15)
[2025-01-24] MEDS ORDERED: ACETAMINOPHEN 650 MG SUPP R PRN (20:15)
[2025-01-24 20:21] VITALS: BP 162/90
[2025-01-24] MEDS ORDERED: Water, Sterile 10 ML VIAL IV PRN (20:30)
[2025-01-24] MEDS ORDERED: Dicyclomine Hydrochloride 20 MG TAB PO PRN (20:30)
[2025-01-24] MEDS ORDERED: METHOCARBAMOL 750 MG TAB PO PRN (20:30)
[2025-01-24] MEDS ORDERED: hydrOXYzine 50 MG CAP PO PRN (20:30)
[2025-01-24] MEDS ORDERED: LORazepam 2 MG/ML VIAL IV PRN (20:30)
[2025-01-24] MEDS ORDERED: FOLIC ACID 1 MG TAB PO ONE (20:30)
[2025-01-24] MEDS ORDERED: Nicotine 21 MG PATCH T SCH (20:30)
[2025-01-24] MEDS ORDERED: SODIUM CHLORIDE 0.9% 1,000 ML IV ONE (21:15)
[2025-01-24] MEDS ORDERED: hydrOXYzine pamoate 25 MG CAP PO PRN (21:55)
[2025-01-24] MEDS ORDERED: traMADol Hydrochloride 50 MG TAB PO SCH (22:00)
[2025-01-25] VITALS: BP 154/88
[2025-01-25] MEDS ORDERED: LORazepam 1 MG TAB PO SCH
[2025-01-25 04:00] VITALS: BP 150/86
[2025-01-25] MEDS ORDERED: GABAPENTIN 300 MG CAP PO SCH (06:00)
[2025-01-25] MEDS ORDERED: Pantoprazole Sodium 40 MG TAB PO SCH (06:00)
[2025-01-25 06:05] LABS: BASO # 0.1 10*3/uL (0.0-0.1); BASO % 1.8 % (0.0-1.0); EOS # 0.3 10*3/uL (0.0-0.4); EOS % 4.9 % (1.0-4.0); HEMATOCRIT 42.2 % (37.0-47.0); MEAN CELL VOLUME 96.6 fl (81.0-99.0); MEAN CORPUSCULAR HGB 32.3 pg (27.0-31.0); MEAN CORPUSCULAR HGB CONC 33.4 g/dl (33.0-37.0); MEAN PLATELET VOLUME 8.4 fl (9.6-12.3); MONO # 0.7 10*3/uL (0.1-1.0); MONO % 10.9 % (3.0-9.0); NEUT # 4.2 10*3/uL (2.3-7.9); NEUT % 64.4 % (47.0-73.0); PLATELET COUNT AUTOMATED 344 10*3/uL (130-400); RED BLOOD COUNT 4.37 10*6/uL (4.10-5.10); RED CELL DISTRI WIDTH 12.6 % (0-14.5); WHITE BLOOD COUNT 6.5 10*3/uL (4.8-10.8)
[2025-01-25 06:29] LABS: ALKALINE PHOSPHATASE 86 U/L (46-116); BUN 8 mg/dl (9-23); CHLORIDE 96 mmol/L (98-107); CHOLESTEROL 234 mg/dL (<200); LDL CHOLESTEROL 104 mg/dL (9-159); POTASSIUM 3.8 mmol/L (3.4-5.1); SGPT/ALT 16 U/L (5-49); TOTAL PROTEIN 6.6 gm/dL (6.0-8.0); TRIGLYCERIDES 75 mg/dl (<150)
[2025-01-25 07:45] LABS: VITAMIN D, 25-HYDROXY 17.5 ng/mL (30-100)
[2025-01-25 08:00] VITALS: BP 158/86
[2025-01-25] MEDS ORDERED: MULTIVITAMIN 1 TAB TAB PO SCH (10:00)
[2025-01-25] MEDS ORDERED: Enoxaparin Sodium 40 MG/0.4 ML SYR SC SCH (10:00)
[2025-01-25] MEDS ORDERED: Thiamine 100 MG TAB PO SCH (10:00)
[2025-01-25] MEDS ORDERED: BUPRENORPHINE HYDROCHLORIDE BC SCH (10:00)
[2025-01-25] MEDS ORDERED: LISINOPRIL 5 MG TAB PO SCH (10:00)
[2025-01-25] MEDS ORDERED: FOLIC ACID 1 MG TAB PO SCH (10:00)
[2025-01-25 12:00] VITALS: BP 152/66
[2025-01-25] MEDS ORDERED: Cholecalciferol 2,000 UNIT TABLET (50 MCG) PO SCH (12:30)
[2025-01-25 16:00] VITALS: BP 156/68
[2025-01-25 20:00] VITALS: BP 158/56
[2025-01-25] MEDS ORDERED: VENT7GM INH (21:08)
[2025-01-25] MEDS ORDERED: Albuterol Sulfate 2.5 MG/3 ML VIAL NEB PRN (22:50)
[2025-01-26] VITALS: BP 160/66; BP 179/95
[2025-01-26] MEDS ORDERED: LORazepam 1 MG TAB PO PRN
[2025-01-26] MEDS ORDERED: LORazepam 1 MG TAB PO SCH (02:00)
[2025-01-26 04:54] LABS: BUN 8 mg/dl (9-23); CHLORIDE 99 mmol/L (98-107); POTASSIUM 3.8 mmol/L (3.4-5.1)
[2025-01-26 06:09] LABS: BASO # 0.1 10*3/uL (0.0-0.1); BASO % 1.4 % (0.0-1.0); EOS # 0.4 10*3/uL (0.0-0.4); HEMATOCRIT 43.2 % (37.0-47.0); MEAN CELL VOLUME 97.7 fl (81.0-99.0); MEAN CORPUSCULAR HGB 32.6 pg (27.0-31.0); MEAN CORPUSCULAR HGB CONC 33.3 g/dl (33.0-37.0); MEAN PLATELET VOLUME 8.8 fl (9.6-12.3); MONO # 0.8 10*3/uL (0.1-1.0); MONO % 12.5 % (3.0-9.0); NEUT # 3.6 10*3/uL (2.3-7.9); NEUT % 56.6 % (47.0-73.0); PLATELET COUNT AUTOMATED 329 10*3/uL (130-400); RED BLOOD COUNT 4.42 10*6/uL (4.10-5.10); RED CELL DISTRI WIDTH 12.9 % (0-14.5); WHITE BLOOD COUNT 6.4 10*3/uL (4.8-10.8)
[2025-01-26 08:00] VITALS: BP 138/72
[2025-01-26] MEDS ORDERED: VITAMIN D350 MCG PO (08:17)
[2025-01-26] MEDS ORDERED: WELLBUTRIN XL150 MG PO (08:17)
[2025-01-26] MEDS ORDERED: TAB-A-VITE TA400 MCG PO (08:17)
[2025-01-26] MEDS ORDERED: LISINOPRIL10 M1 PO (08:17)
[2025-01-26] MEDS ORDERED: NATURE'S BLEND F1 MG PO (08:17)
[2025-01-26] MEDS ORDERED: NATURE'S BLEND100 M2 PO (08:17)
[2025-01-26] MEDS ORDERED: ATIVAN1 MG PO (08:23)
[2025-01-26] MEDS ORDERED: LISINOPRIL 10 MG TAB PO SCH (10:00)
== END 2025-01-26 09:03 | disposition home or self-care (01) | DRG 305 ==
LOC: ED 15:39 → EDHOLD 19:03 → 4E 19:03
PROVIDERS: Internal Medicine; Student in an Organized Health Care Education/Training Program; ADMIT Internal Medicine; ATTEND Internal Medicine
DX: I16.0 Hypertensive urgency (principal); E87.1 Hypo-osmolality and hyponatremia; E87.8 Other disorders of electrolyte and fluid balance, not elsewhere classified; K29.50 Unspecified chronic gastritis without bleeding; F41.9 Anxiety disorder, unspecified; E83.42 Hypomagnesemia; R07.89 Other chest pain; R73.9 Hyperglycemia, unspecified; F32.A Depression, unspecified; I10 Essential (primary) hypertension; K21.00 Gastro-esophageal reflux disease with esophagitis, without bleeding; F10.20 Alcohol dependence, uncomplicated; F17.210 Nicotine dependence, cigarettes, uncomplicated; Z71.6 Tobacco abuse counseling; Z91.199 Patient's noncompliance with other medical treatment and regimen due to unspecified reason; Z90.49 Acquired absence of other specified parts of digestive tract; Z98.51 Tubal ligation status; Z82.49 Family history of ischemic heart disease and other diseases of the circulatory system; Z95.0 Presence of cardiac pacemaker; Z88.2 Allergy status to sulfonamides; Z79.899 Other long term (current) drug therapy